=== PATIENT | female | born 1985 | race Caucasian/White ===

== ENCOUNTER → 2023-11-19 09:12 | Outpatient (REF) | payer BC, SELFPAY | LOC: HWRAD 09:12 | PROVIDERS: ATTENDING PHYSICIAN Nurse Practitioner | DX: Z30.09 Encounter for other general counseling and advice on contraception (principal) | CPT/HCPCS: 76830; 76856 ==

== ENCOUNTER → 2024-12-13 08:01 | Outpatient (REF) | payer OTHER, SELFPAY | LOC: RAD 08:01 | PROVIDERS: ATTENDING PHYSICIAN Nurse Practitioner | DX: S69.92XD Unspecified injury of left wrist, hand and finger(s), subsequent encounter (principal) | CPT/HCPCS: 73130 ==